=== PATIENT | female | born 1995 | race Caucasian/White ===

== ENCOUNTER 2019-06-04 20:18 | Emergency (ER) | payer MEDICAID ==
[~2019-06-04] VITALS: Ht 160 cm; Wt 58.0 kg
[2019-06-04] MEDS ORDERED: ondansetron/PF 4mg/2ml inj IV ONE (22:35)
[2019-06-04] MEDS ORDERED: normal saline 1000ML IV soln IVB ONE (22:35)
[2019-06-04 23:01] LABS: BASOPHILS % (AUTO) 0.2 % (0-1); EOSINOPHILS # (AUTO) 0.1 X10'3 (0-0.9); EOSINOPHILS % (AUTO) 1.2 % (0-6); HEMATOCRIT 39.7 % (35.0-45.0); HEMOGLOBIN 13.5 g/dl (12.0-16.0); LYMPHOCYTES # (AUTO) 2.2 X10'3 (1.1-4.8); LYMPHOCYTES % (AUTO) 18.2 % (21-51); MEAN CORPUSCULAR HEMOGLOBIN 29.2 PG (27.0-31.0); MEAN CORPUSCULAR VOLUME 85.7 FL (78-98); MEAN PLATELET VOLUME 10.9 FL (7.4-10.4); MONOCYTES # (AUTO) 1.1 X10'3 (0-0.9); MONOCYTES % (AUTO) 8.7 % (2-12); NEUTROPHILS # (AUTO) 8.8 X10'3 (1.8-7.7); NEUTROPHILS % (AUTO) 71.7 % (42-75); PLATELET COUNT 169 X10'3 (140-440); RED BLOOD COUNT 4.63 X10'6 (4.20-5.60); WHITE BLOOD COUNT 12.3 X10'3 (4.5-11.0)
[2019-06-04 23:11] LABS: ALANINE AMINOTRANSFERASE 33 U/L (12-78); ALBUMIN 3.6 G/DL (3.4-5.0); ALBUMIN/GLOBULIN RATIO 0.9 (1.1-1.5); ALKALINE PHOSPHATASE 63 IU/L (46-116); ANION GAP 10 (8-16); ASPARTATE AMINO TRANSFERASE 12 U/L (10-37); BILIRUBIN,TOTAL 0.4 MG/DL (0.1-1.0); BLOOD UREA NITROGEN 10 MG/DL (7-18); BUN/CREATININE RATIO 16.4 (6.6-38.0); CALCIUM 8.9 MG/DL (8.5-10.1); CHLORIDE 102 MMOL/L (99-107); CREATININE 0.61 MG/DL (0.40-0.90); GLUCOSE 81 MG/DL (70-104); POTASSIUM 3.6 MMOL/L (3.5-5.1); SODIUM 136 MMOL/L (135-145); TOTAL CARBON DIOXIDE 24.1 MMOL/L (24-32); TOTAL PROTEIN 7.5 G/DL (6.4-8.2); eGFR > 90 ML/MIN
[2019-06-04 23:36] VITALS: BP 105/52
[2019-06-04 23:42] LABS: LIPASE 99 U/L (73-393)
[2019-06-04 23:50] LABS: BETA HCG,QUANTITATIVE 181053 mIU/ml
[2019-06-05] MEDS ORDERED: ONDA4TAB6 PO (00:32)
[2019-06-05 00:33] LABS: CLARITY,URINE CLEAR (Clear); COLOR,URINE YELLOW (Yellow); GLUCOSE, URINE NEGATIVE (Neg); KETONES,URINE 15 mg/dl (Neg); LEUKOCYTE ESTERASE ,URINE NEGATIVE (Neg); NITRITES, URINE NEGATIVE (Neg); OCCULT BLOOD,URINE NEGATIVE (Neg); PROTEIN,URINE NEGATIVE (Neg); UROBILINOGEN,URINE 0.2 E.U/dL (0.2-1.0)
[2019-06-05 00:34] LABS: UA COLLECTION TYPE CLN CATCH MIDSTREAM
[2019-06-05 00:34] LABS: LARGE PLATELETS FEW; PLATELET ESTIMATE NORMAL
== END 2019-06-05 00:46 | disposition home or self-care (01) ==
LOC: ER 20:21
DX: O21.8 Other vomiting complicating pregnancy (principal); O26.891 Other specified pregnancy related conditions, first trimester; R10.84 Generalized abdominal pain; F12.90 Cannabis use, unspecified, uncomplicated; Z3A.01 Less than 8 weeks gestation of pregnancy; Z79.899 Other long term (current) drug therapy
CPT/HCPCS: 36415; 80053; 81003; 83690; 84702; 85025; 96361; 96374; 99283; J2405; J7030

== ENCOUNTER 2022-07-22 11:57 | Emergency (ER) | payer MEDICAID ==
[~2022-07-22] VITALS: Ht 160 cm; Wt 65.9 kg
[~2022-07-22 11:57] MED LIST: ONDA4TAB6 PO
[2022-07-22 12:25] VITALS: BP 123/86
== END 2022-07-22 14:03 | disposition home or self-care (01) ==
LOC: ER 11:57
DX: G43.809 Other migraine, not intractable, without status migrainosus (principal); F12.10 Cannabis abuse, uncomplicated; Z88.8 Allergy status to other drugs, medicaments and biological substances
CPT/HCPCS: 99281

== ENCOUNTER 2022-11-30 07:15 | Day surgery (SDC) | payer MEDICAID ==
[2022-11-28 14:31] LABS: BASOPHILS % (AUTO) 0.4 % (0-1); EOSINOPHILS # (AUTO) 0.1 X10'3 (0-0.9); EOSINOPHILS % (AUTO) 1.4 % (0-6); LYMPHOCYTES # (AUTO) 2.7 X10'3 (1.1-4.8); LYMPHOCYTES % (AUTO) 27.4 % (21-51); MEAN CORPUSCULAR HEMOGLOBIN 28.4 PG (27.0-31.0); MEAN CORPUSCULAR HGB CONC 33.7 g/dL (33.0-36.5); MEAN CORPUSCULAR VOLUME 84.5 FL (78-98); MONOCYTES # (AUTO) 0.8 X10'3 (0-0.9); MONOCYTES % (AUTO) 8.5 % (2-12); NEUTROPHILS % (AUTO) 62.3 % (42-75); PRE OP HEMATOCRIT 41.2 % (35.0-45.0); PRE OP HEMOGLOBIN 13.9 g/dL (12.0-16.0); PRE OP PLATELET COUNT 231 X10'3 (140-440); RED BLOOD COUNT 4.88 X10'6 (4.20-5.60); RED CELL DISTRIBUTION WIDTH 12.6 % (11.5-14.5)
[2022-11-28 14:37] LABS: ALBUMIN 3.9 G/DL (3.4-5.0); ALKALINE PHOSPHATASE 79 IU/L (46-116); BLOOD UREA NITROGEN 9 MG/DL (7-18); BUN/CREATININE RATIO 12.9 (6.6-38.0); CALCIUM 9.1 MG/DL (8.5-10.1); CHLORIDE 102 MMOL/L (99-107); PRE OP ALT 20 U/L (30-65); PRE OP ANION GAP 8 (8-16); PRE OP AST 18 U/L (10-37); PRE OP BILIRUB, TOTAL 0.4 MG/DL (0.0-1.0); PRE OP GLUCOSE 97 MG/DL (70-104); PRE OP POTASSIUM 3.7 MMOL/L (3.4-5.1); PRE OP SODIUM 138 MMOL/L (135-145); TOTAL PROTEIN 7.8 G/DL (6.4-8.2); eGFR > 90 ML/MIN
[2022-11-28 15:06] LABS: HCG SERUM QL NEGATIVE
[~2022-11-30] VITALS: Ht 160 cm; Wt 69.7 kg
[2022-11-30] VITALS (10 sets, daily range): BP systolic 113–150; BP diastolic 69–87
[~2022-11-30 07:15] MED LIST changes: +ACET-1025 PO; +IBUP-1985 PO; -ONDA4TAB6 PO; +PREN1TAB79 PO; +ceFAZolin inj. 2,000 MG in dextrose 5%-water 100 ML IV ONE; +famotidine 20mg tablet PO ONE; +ringers solution, lacted 1,000 ML IV SCH
[2022-11-30] MEDS ORDERED: BUPIVAcaine 0.25% w/Epi /PF 30ml vial ONE (10:06)
[2022-11-30] MEDS ORDERED: sevoflurane 250ml liquid IH ONE (10:11)
[2022-11-30] MEDS ORDERED: morphine 2 MG/ML inj. syringe IV PRN (10:15)
[2022-11-30] MEDS ORDERED: meperidine/PF 25mg/ml syringe IV PRN ×3 (10:15)
[2022-11-30] MEDS ORDERED: hydrALAZINE 20mg/ml inj. IV PRN (10:15)
[2022-11-30] MEDS ORDERED: ondansetron/PF 4mg/2ml inj IV PRN (10:15)
[2022-11-30] MEDS ORDERED: acetaminophen 1,000mg/100ml IV 100 ML IV PRN (10:15)
[2022-11-30] MEDS ORDERED: ketorolac trometh. 30mg/ml inj. IV ONE (10:15)
[2022-11-30] MEDS ORDERED: proCHLORperazine 10 MG/2 ml inj IV PRN (10:15)
[2022-11-30] MEDS ORDERED: labetalol 20mg/4ml (5mg/ml) syringe IV PRN (10:15)
[2022-11-30] MEDS ORDERED: ringers solution, lacted 1,000 ML IV SCH (10:15)
[2022-11-30] MEDS ORDERED: morphine 4 MG/ML inj SYRINge IV PRN (10:15)
[2022-11-30] MEDS ORDERED: fentaNYL /PF 50mcg/ml 5ml ampule ONE (10:22)
[2022-11-30] MEDS ORDERED: midazolam 1 mg/ML 2ml injection ONE (10:22)
[2022-11-30] MEDS ORDERED: dexamethasone sod phosphate 4mg/ml inj. ONE (10:34)
[2022-11-30] MEDS ORDERED: ondansetron/PF 4mg/2ml inj ONE (10:34)
[2022-11-30] MEDS ORDERED: propofol inj 20 ML IV ONE (10:35)
[2022-11-30] MEDS ORDERED: LIDOcaine 2% (20mg/ml) 5ml vial ONE (10:35)
[2022-11-30] MEDS ORDERED: rocuronium 10mg/ml inj IV ONE (10:35)
[2022-11-30] MEDS ORDERED: neostigmine methylsulfate 1 MG/ML 10ml vial ONE (11:05)
[2022-11-30] MEDS ORDERED: glycopyrrolate 0.2mg/ml inj ONE (11:05)
--- NOTE | 2022-11-30 11:15 | NUR ---
Received from OR via BR[facility] , accompanied by Anesthesiologist DR ARANDA and report given by Anesthesiolgist. PT PRESNTS WITH PIV 20G LEFT HAND, DRESSING CDI, VSS. Addendum: 11/30/22 at 1123 by Mami Nunez RN, RN Amended: Links added.
--- NOTE | 2022-11-30 12:45 | NUR ---
I HAVE REVIEWED D/C INSTRUCTIONS WITH PATIENT AND THEY HAVE VERBALIZED UNDERSTANDING OF INSTRUCTIONS. PATIENT D/C HOME WITH ALL BELONGINGS AND FAMILY GAVE TRANSPORT Addendum: 11/30/22 at 1254 by Mami Nunez RN, RN Amended: Links added.
== END 2022-11-30 12:45 | disposition home or self-care (01) ==
LOC: PAS 07:15
PROVIDERS: ATTEND Obstetrics & Gynecology
DX: Z30.2 Encounter for sterilization (principal); J45.909 Unspecified asthma, uncomplicated; F43.10 Post-traumatic stress disorder, unspecified; F31.9 Bipolar disorder, unspecified; F41.9 Anxiety disorder, unspecified; F12.90 Cannabis use, unspecified, uncomplicated; Z98.890 Other specified postprocedural states; Z79.899 Other long term (current) drug therapy; Z72.89 Other problems related to lifestyle; Z98.818 Other dental procedure status; Z88.8 Allergy status to other drugs, medicaments and biological substances
CPT/HCPCS: 36415; 58670; 80053; 82948; 84703; 85025; 93005; J0690; J1100; J1885; J2250; J2405; J2704; J2710; J3010; J3490; J7060; J7120; S0020; Z7506; Z7508; Z7512; A4618; A7000

== ENCOUNTER 2022-12-04 14:37 | Emergency (ER) | payer MEDICAID ==
[~2022-12-04] VITALS: Ht 160 cm; Wt 70.7 kg
[~2022-12-04 14:37] MED LIST changes: -ceFAZolin inj. 2,000 MG in dextrose 5%-water 100 ML IV ONE; -famotidine 20mg tablet PO ONE; -ringers solution, lacted 1,000 ML IV SCH
[2022-12-04 16:26] LABS: CLARITY,URINE SLIGHTLY CLOUDY (Clear); COLOR,URINE YELLOW (Yellow); GLUCOSE, URINE NEGATIVE (Neg); KETONES,URINE NEGATIVE (Neg); LEUKOCYTE ESTERASE ,URINE NEGATIVE (Neg); NITRITES, URINE NEGATIVE (Neg); OCCULT BLOOD,URINE TRACE-INTACT (Neg); PROTEIN,URINE NEGATIVE (Neg); UROBILINOGEN,URINE 0.2 E.U/dL (0.2-1.0)
[2022-12-04 16:31] LABS: UA COLLECTION TYPE NON-SPECIFIED
[2022-12-04 16:47] LABS: BASOPHILS % (AUTO) 0.3 % (0-1); EOSINOPHILS # (AUTO) 0.2 X10'3 (0-0.9); EOSINOPHILS % (AUTO) 2.7 % (0-6); HEMATOCRIT 42.4 % (35.0-45.0); LYMPHOCYTES # (AUTO) 2.3 X10'3 (1.1-4.8); MEAN CORPUSCULAR HEMOGLOBIN 27.8 PG (27.0-31.0); MEAN CORPUSCULAR HGB CONC 32.9 g/dL (33.0-36.5); MEAN CORPUSCULAR VOLUME 84.5 FL (78-98); MEAN PLATELET VOLUME 10.6 FL (7.4-10.4); MONOCYTES # (AUTO) 0.8 X10'3 (0-0.9); MONOCYTES % (AUTO) 9.6 % (2-12); NEUTROPHILS # (AUTO) 5.3 X10'3 (1.8-7.7); NEUTROPHILS % (AUTO) 61.4 % (42-75); PLATELET COUNT 209 X10'3 (140-440); RED BLOOD COUNT 5.01 X10'6 (4.20-5.60); RED CELL DISTRIBUTION WIDTH 12.9 % (11.5-14.5); WHITE BLOOD COUNT 8.7 X10'3 (4.5-11.0)
[2022-12-04 16:48] LABS: SQUAMOUS EPITHELIAL CELL,UR MANY /LPF (FEW)
[2022-12-04 16:49] LABS: BACTERIA,URINE FEW /HPF (Neg); MUCUS STRANDS NONE SEEN /LPF (Neg)
[2022-12-04 16:50] LABS: RBC,URINE 0-2 /HPF (0-2); WBC,URINE 0-4 /HPF (0-4)
[2022-12-04 16:52] LABS: ALANINE AMINOTRANSFERASE 39 U/L (12-78); ALBUMIN 4.1 G/DL (3.4-5.0); ALBUMIN/GLOBULIN RATIO 1.1 (1.1-1.5); ALKALINE PHOSPHATASE 74 IU/L (46-116); ANION GAP 10 (8-16); ASPARTATE AMINO TRANSFERASE 21 U/L (10-37); BILIRUBIN,TOTAL 0.2 MG/DL (0.1-1.0); BLOOD UREA NITROGEN 11 MG/DL (7-18); BUN/CREATININE RATIO 18.6 (6.6-38.0); CHLORIDE 102 MMOL/L (99-107); CREATININE 0.59 MG/DL (0.40-0.90); GLUCOSE 88 MG/DL (70-104); SODIUM 138 MMOL/L (135-145); TOTAL CARBON DIOXIDE 26.4 MMOL/L (24-32); eGFR > 90 ML/MIN
[2022-12-04 16:53] LABS: TRANSITIONAL EPI CELLS,URINE FEW /HPF
[2022-12-04 19:06] LABS: LARGE PLATELETS FEW; PLATELET ESTIMATE NORMAL
[2022-12-05] MEDS ORDERED: ondansetron/PF 4mg/2ml inj IV ONE (01:00)
[2022-12-05] MEDS ORDERED: HYDROcodone/acetaminophen 10/325mg tab PO ONE (01:00)
[2022-12-05] MEDS ORDERED: normal saline 1000ML IV soln IVB ONE (01:15)
[2022-12-05] MEDS ORDERED: iohexol 350MG/ML 100ml bottle IV ONE (01:36)
[2022-12-05 02:56] VITALS: BP 132/85
== END 2022-12-05 03:11 | disposition home or self-care (01) ==
LOC: ER 14:38
DX: R10.9 Unspecified abdominal pain (principal); G43.909 Migraine, unspecified, not intractable, without status migrainosus; F12.90 Cannabis use, unspecified, uncomplicated; Z98.51 Tubal ligation status; Z88.8 Allergy status to other drugs, medicaments and biological substances
CPT/HCPCS: 36415; 71045; 74177; 80053; 81001; 83605; 84145; 85008; 85025; 87040; 93005; 96374; 99285; J2405; J3490; J7030; Q9967

== ENCOUNTER 2023-05-02 12:00 | Emergency (ER) | payer MEDICAID ==
[~2023-05-02] VITALS: Ht 160 cm; Wt 70.5 kg
--- NOTE | 2023-05-02 12:17 | NUR ---
anny KEMP swabbed pt and took pt vitals, vitals inputted by extension service specialist in charge
[2023-05-02 12:31] LABS: BASOPHILS % (AUTO) 0.3 % (0-1); EOSINOPHILS # (AUTO) 0.2 X10'3 (0-0.9); EOSINOPHILS % (AUTO) 2.5 % (0-6); HEMATOCRIT 40.6 % (35.0-45.0); HEMOGLOBIN 13.6 g/dl (12.0-16.0); LYMPHOCYTES # (AUTO) 2.3 X10'3 (1.1-4.8); LYMPHOCYTES % (AUTO) 32.5 % (21-51); MEAN CORPUSCULAR HGB CONC 33.6 g/dL (33.0-36.5); MEAN CORPUSCULAR VOLUME 83.3 FL (78-98); MEAN PLATELET VOLUME 10.5 FL (7.4-10.4); MONOCYTES # (AUTO) 0.5 X10'3 (0-0.9); MONOCYTES % (AUTO) 7.9 % (2-12); NEUTROPHILS # (AUTO) 3.9 X10'3 (1.8-7.7); NEUTROPHILS % (AUTO) 56.8 % (42-75); PLATELET COUNT 176 X10'3 (140-440); RED BLOOD COUNT 4.87 X10'6 (4.20-5.60); RED CELL DISTRIBUTION WIDTH 13.3 % (11.5-14.5); WHITE BLOOD COUNT 6.9 X10'3 (4.5-11.0)
[2023-05-02 12:49] LABS: ALANINE AMINOTRANSFERASE 22 U/L (12-78); ALBUMIN 4.2 G/DL (3.4-5.0); ALBUMIN/GLOBULIN RATIO 1.1 (1.1-1.5); ALKALINE PHOSPHATASE 75 IU/L (46-116); ANION GAP 6 (8-16); ASPARTATE AMINO TRANSFERASE 25 U/L (10-37); BILIRUBIN,TOTAL 0.4 MG/DL (0.1-1.0); BLOOD UREA NITROGEN 7 MG/DL (7-18); BUN/CREATININE RATIO 10.8 (10.0-20.0); CALCIUM 9.2 MG/DL (8.5-10.1); CHLORIDE 102 MMOL/L (99-107); CREATININE 0.65 MG/DL (0.40-0.90); ETHANOL < 0.010 GM/DL (0.0-0.010); GLUCOSE 100 MG/DL (70-104); SODIUM 136 MMOL/L (135-145); TOTAL CARBON DIOXIDE 27.6 MMOL/L (24-32); TOTAL PROTEIN 7.9 G/DL (6.4-8.2); eGFR > 90 ML/MIN
[2023-05-02] MEDS ORDERED: ALPRAZolam 0.5mg tablet PO ONE (12:50)
[2023-05-02 13:17] LABS: POTASSIUM 4.4 MMOL/L (3.5-5.1)
--- NOTE | 2023-05-02 13:54 | NUR ---
tech inventoried pt belongings and placed them in the locker corresponding tot the room number in the room 27. pt valuables placed in the registration safe.
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
[2023-05-02 14:33] LABS: URINE AMPHETAMINE SCREEN NEGATIVE (Neg); URINE BARBITUATE SCREEN NEGATIVE (Neg); URINE BENZODIAZEPINES SCREEN NEGATIVE (Neg); URINE CANNABINOID SCREEN POSITIVE (Neg); URINE COCAINE SCREEN NEGATIVE (Neg); URINE METHADONE SCREEN NEGATIVE (Neg); URINE OPIATE SCREEN NEGATIVE (Neg); URINE PHENCYCLIDINE SCREEN NEGATIVE (Neg)
[2023-05-02 14:39] LABS: URINE HCG NEGATIVE (NEG)
[2023-05-02 15:15] LABS: CLARITY,URINE CLEAR (Clear); COLOR,URINE STRAW (Yellow); GLUCOSE, URINE NEGATIVE (Neg); KETONES,URINE NEGATIVE (Neg); LEUKOCYTE ESTERASE ,URINE NEGATIVE (Neg); NITRITES, URINE NEGATIVE (Neg); OCCULT BLOOD,URINE NEGATIVE (Neg); PROTEIN,URINE NEGATIVE (Neg); UROBILINOGEN,URINE 0.2 E.U/dL (0.2-1.0)
[2023-05-02 15:21] LABS: UA COLLECTION TYPE CLN CATCH MIDSTREAM
--- NOTE | 2023-05-02 15:35 | NUR ---
anny sent pt packet to [facility]
--- NOTE | 2023-05-02 19:15 | NUR ---
[facility] transport is here. Patient is being transferred to [facility] in [place].
--- NOTE | 2023-05-02 20:50 | NUR ---
Patient is resting quietly, no distress. Awaiting Xfer to [facility] in [place].
[2023-05-02 20:52] VITALS: BP 110/60
== END 2023-05-02 20:56 ==
LOC: ER 12:00
DX: F32.A Depression, unspecified (principal); Z20.822 Contact with and (suspected) exposure to COVID-19; R45.851 Suicidal ideations; G43.909 Migraine, unspecified, not intractable, without status migrainosus; F17.200 Nicotine dependence, unspecified, uncomplicated; F12.90 Cannabis use, unspecified, uncomplicated; Z88.8 Allergy status to other drugs, medicaments and biological substances; Z98.51 Tubal ligation status
CPT/HCPCS: 36415; 80053; 80305; 80320; 81003; 81025; 84443; 85025; 87811; 99285; J7030

== ENCOUNTER 2024-07-31 10:49 | Inpatient (IN) | payer MEDICAID ==
[~2024-07-31] VITALS: Ht 160 cm; Wt 68.4 kg
[2024-07-31 11:27] LABS: BILIRUBIN,URINE NEGATIVE (Neg); CLARITY,URINE SLIGHTLY CLOUDY (Clear); COLOR,URINE YELLOW (Yellow); GLUCOSE, URINE NEGATIVE (Neg); KETONES,URINE NEGATIVE (Neg); LEUKOCYTE ESTERASE ,URINE NEGATIVE (Neg); NITRITES, URINE NEGATIVE (Neg); OCCULT BLOOD,URINE NEGATIVE (Neg); PROTEIN,URINE NEGATIVE (Neg); URINE HCG NEGATIVE (NEG); UROBILINOGEN,URINE 0.2 E.U/dL (0.2-1.0)
[2024-07-31 11:28] LABS: UA COLLECTION TYPE CLN CATCH MIDSTREAM
[2024-07-31 11:32] LABS: BASOPHILS % (AUTO) 0.5 % (0-1); EOSINOPHILS # (AUTO) 0.2 X10'3 (0-0.9); EOSINOPHILS % (AUTO) 2.9 % (0-6); HEMATOCRIT 40.5 % (35.0-45.0); HEMOGLOBIN 13.3 g/dl (12.0-16.0); LYMPHOCYTES # (AUTO) 2.4 X10'3 (1.1-4.8); LYMPHOCYTES % (AUTO) 37.5 % (21-51); MEAN CORPUSCULAR HEMOGLOBIN 28.5 PG (27.0-31.0); MEAN CORPUSCULAR VOLUME 86.4 FL (78-98); MEAN PLATELET VOLUME 9.9 FL (7.4-10.4); MONOCYTES # (AUTO) 0.7 X10'3 (0-0.9); MONOCYTES % (AUTO) 10.5 % (2-12); NEUTROPHILS # (AUTO) 3.1 X10'3 (1.8-7.7); NEUTROPHILS % (AUTO) 48.6 % (42-75); PLATELET COUNT 154 X10'3 (140-440); RED BLOOD COUNT 4.68 X10'6 (4.20-5.60); RED CELL DISTRIBUTION WIDTH 12.5 % (11.5-14.5); WHITE BLOOD COUNT 6.3 X10'3 (4.5-11.0)
[2024-07-31 11:36] LABS: URINE AMPHETAMINE SCREEN NEGATIVE (Neg); URINE BARBITUATE SCREEN NEGATIVE (Neg); URINE BENZODIAZEPINES SCREEN NEGATIVE (Neg); URINE CANNABINOID SCREEN POSITIVE (Neg); URINE COCAINE SCREEN NEGATIVE (Neg); URINE METHADONE SCREEN NEGATIVE (Neg); URINE OPIATE SCREEN NEGATIVE (Neg); URINE PHENCYCLIDINE SCREEN NEGATIVE (Neg)
[2024-07-31 11:38] LABS: BACTERIA,URINE 1+ /HPF (Neg); MUCUS STRANDS NONE SEEN /LPF (Neg); RBC,URINE NONE SEEN /HPF (0-2); SQUAMOUS EPITHELIAL CELL,UR MANY /LPF (FEW); WBC,URINE 0-4 /HPF (0-4)
[2024-07-31] MEDS: diphenhydrAMINE 25mg capsule PO ONE (11:40)
[2024-07-31] MEDS ORDERED: haloperidol lactate 5mg/ml inj IM ONE (11:40)
[2024-07-31 11:53] LABS: ALBUMIN 3.6 G/DL (3.4-5.0); ANION GAP 7 (8-16); BLOOD UREA NITROGEN 11 MG/DL (7-18); BUN/CREATININE RATIO 14.3 (10.0-20.0); CALCIUM 9.1 MG/DL (8.5-10.1); CHLORIDE 107 MMOL/L (99-107); CREATININE 0.77 MG/DL (0.40-0.90); ETHANOL < 10 MG/DL (<10); GLUCOSE 94 MG/DL (70-104); POTASSIUM 4.6 MMOL/L (3.5-5.1); SODIUM 141 MMOL/L (135-145); THYROID STIMULATING HORMONE 2.55 ulU/ml (0.34-4.50); eCRCL 90 ML/MIN; eGFR 89 ML/MIN
[2024-07-31] MEDS: acetaminophen 325mg tablet PO ONE (13:03)
[2024-07-31] MEDS: haloperidol 5mg tablet PO ONE (13:03)
[2024-07-31] MEDS ORDERED: HYDR50CA5 PO (14:40)
[2024-07-31] MEDS ORDERED: LUMA42CA PO (14:40)
[2024-07-31] MEDS ORDERED: GUAN2TAB PO (14:40)
[2024-07-31] MEDS ORDERED: CHLO10TA18 PO (14:40)
[2024-07-31] MEDS ORDERED: FLUO20CA39 PO (14:40)
[2024-07-31] MEDS: chlorproMAZINE 25mg tablet PO SCH (20:23)
[2024-07-31] MEDS: hydrOXYzine 25 MG tablet PO SCH (20:23)
[2024-07-31] MEDS ORDERED: loperamide 2mg capsule PO PRN (21:30)
[2024-07-31] MEDS ORDERED: mag hydrox/Alum hydrox/simeth 30ml oral suspension PO PRN (21:30)
[2024-07-31] MEDS ORDERED: magnesium hydroxide 30ml (MOM) UD suspension PO PRN (21:30)
[2024-07-31 22:11] VITALS: RESP 16; O2SAT 98
[2024-07-31 23:40] VITALS: BP 134/78; PULSE 69; RESP 16; TEMP 97.5; O2SAT 98
[2024-08-01] MEDS: FLUoxetine 10mg capsule PO SCH (07:22)
[2024-08-01] MEDS: guanFACINE 1 mg tablet PO SCH (07:22)
[2024-08-01 07:30] VITALS: BP 146/90; PULSE 88; RESP 20; TEMP 96.6; O2SAT 97
[2024-08-01 07:46] LABS: CHOL/HDL RATIO 3.4 (0.00-4.99); CHOLESTEROL 188 MG/DL (0-200); HDL CHOLESTEROL 56 MG/DL (35-60); LDL CHOLESTEROL 105 MG/DL (50-100); TRIGLYCERIDES 117 MG/DL (20-135)
[2024-08-01 08:00] LABS: HEMOGLOBIN A1C 4.9 % (4.5-6.2)
[2024-08-01] MEDS: acetaminophen 325mg tablet PO PRN (12:59)
[2024-08-01 19:10] VITALS: RESP 14; O2SAT 97
[2024-08-01 20:00] VITALS: BP 95/72; PULSE 76; RESP 14; TEMP 97.6; O2SAT 97
[2024-08-02 07:15] VITALS: BP 136/91; PULSE 77; RESP 16; TEMP 97.8; O2SAT 98
[2024-08-02] MEDS: acetaminophen 325mg tablet PO PRN (07:30)
[2024-08-02 09:30] VITALS: RESP 16; O2SAT 98
[2024-08-02 19:49] VITALS: RESP 16; O2SAT 98
[2024-08-02 19:52] VITALS: BP 113/65; PULSE 87; RESP 16; TEMP 97.8; O2SAT 98
[2024-08-03 07:19] VITALS: RESP 16
[2024-08-03 07:30] VITALS: BP 114/81; PULSE 84; RESP 14; TEMP 97.9; O2SAT 99
[2024-08-03] MEDS: diphenhydrAMINE 25mg capsule PO PRN (18:43)
[2024-08-03 19:00] VITALS: RESP 16; O2SAT 100
[2024-08-03 20:00] VITALS: BP 117/74; PULSE 71; RESP 16; TEMP 97; O2SAT 100
[2024-08-03] MEDS: LUMATEPERONE TOSYLATE 42 MG PO SCH (20:41)
[2024-08-03] MEDS: traZODone 50mg tablet PO PRN (20:41)
[2024-08-04 07:42] VITALS: RESP 14; O2SAT 98
[2024-08-04 07:43] VITALS: BP 123/67; PULSE 74; RESP 14; TEMP 98; O2SAT 98
[2024-08-04] MEDS: aspirin/acetaminophen/caffeine tablet PO PRN (17:56)
[2024-08-04 19:14] VITALS: RESP 12; O2SAT 94
[2024-08-04 20:08] VITALS: BP 119/72; PULSE 91; RESP 12; TEMP 97; O2SAT 94
[2024-08-05 08:00] VITALS: BP 128/83; PULSE 74; RESP 16; TEMP 97.5; O2SAT 98
[2024-08-05] MEDS ORDERED: FLUO-81 PO (09:53)
[2024-08-05] MEDS ORDERED: TRAZ-251 PO (09:53)
== END 2024-08-05 11:57 | disposition home or self-care (01) | DRG 751 ==
LOC: ER 10:49 → ED HOLD 17:30 → ADULT MH 21:02
PROVIDERS: ADMIT Psychiatry & Neurology Psychiatry; ATTEND Psychiatry & Neurology Psychiatry
DX: F33.3 Major depressive disorder, recurrent, severe with psychotic symptoms (principal); R45.851 Suicidal ideations; J45.909 Unspecified asthma, uncomplicated; F43.10 Post-traumatic stress disorder, unspecified; Z20.822 Contact with and (suspected) exposure to COVID-19; F10.20 Alcohol dependence, uncomplicated; F41.9 Anxiety disorder, unspecified; G43.909 Migraine, unspecified, not intractable, without status migrainosus; Z88.8 Allergy status to other drugs, medicaments and biological substances
CPT/HCPCS: 36415; 80048; 80061; 80305; 80320; 81001; 81025; 83036; 84443; 85025; 87811; 99285; Q0161; Q0163; Q0177

== ENCOUNTER 2025-01-03 19:05 | Emergency (ER) | payer MEDICAID ==
[~2025-01-03] VITALS: Ht 160 cm; Wt 75.0 kg
[~2025-01-03 19:05] MED LIST changes: +CHLO10TA18 PO; +FLUO-81 PO; +GUAN2TAB PO; +HYDR50CA5 PO; +LUMA42CA PO; +TRAZ-251 PO
[2025-01-03] MEDS ORDERED: ONDA-243 PO (19:40)
[2025-01-03] MEDS: thiamine 100mg tablet PO ONE (19:51)
[2025-01-03] MEDS: folic acid 1mg tablet PO ONE (19:51)
[2025-01-03] MEDS: normal saline 1000ml 1,000 ML IV ONE (19:51)
[2025-01-03] MEDS: diphenhydrAMINE 50 mg/ml inj IV ONE (20:23)
[2025-01-03] MEDS: ondansetron/PF 4mg/2ml inj IV ONE (20:23)
[2025-01-03] MEDS: acetaminophen 1,000mg/100ml IV 100 ML IV ONE (20:23)
[2025-01-03 21:46] VITALS: BP 124/82; PULSE 70; RESP 18; TEMP 98.6; O2SAT 99
== END 2025-01-03 21:47 | disposition home or self-care (01) ==
LOC: ER 19:06
DX: F10.10 Alcohol abuse, uncomplicated (principal); G43.909 Migraine, unspecified, not intractable, without status migrainosus; F32.A Depression, unspecified; F41.9 Anxiety disorder, unspecified; F12.90 Cannabis use, unspecified, uncomplicated; Z98.51 Tubal ligation status; Y90.9 Presence of alcohol in blood, level not specified
CPT/HCPCS: 93005; 96361; 96374; 96375; 99284; J0131; J1200; J2405; J7030

== ENCOUNTER 2025-01-07 09:26 | Emergency (ER) | payer MEDICAID ==
[~2025-01-07] VITALS: Ht 160 cm; Wt 75.0 kg
[~2025-01-07 09:26] MED LIST changes: +ONDA-243 PO
[2025-01-07 09:44] VITALS: BP 122/86; PULSE 104; RESP 20; O2SAT 97
[2025-01-07] MEDS ORDERED: IBUP-862 PO (11:14)
[2025-01-07] MEDS ORDERED: ibuprofen 200mg tablet PO ONE (11:15)
[2025-01-07 11:29] VITALS: TEMP 98
== END 2025-01-07 11:31 | disposition home or self-care (01) ==
LOC: ER 09:27
DX: S80.01XA Contusion of right knee, initial encounter (principal); G43.909 Migraine, unspecified, not intractable, without status migrainosus; Z88.8 Allergy status to other drugs, medicaments and biological substances; Z79.899 Other long term (current) drug therapy; Z98.51 Tubal ligation status; W01.0XXA Fall on same level from slipping, tripping and stumbling without subsequent striking against object, initial encounter; Y93.89 Activity, other specified; Y92.89 Other specified places as the place of occurrence of the external cause; Y99.8 Other external cause status
CPT/HCPCS: 29505; 73564; 99283

== ENCOUNTER 2025-07-13 14:17 | Outpatient (CLI) | payer MEDICAID ==
[~2025-07-13 14:17] MED LIST changes: -IBUP-1985 PO; +IBUP-862 PO; +IBUP600T52 PO
--- NOTE | 2025-07-13 15:54 | ELECTROCARDIOGRAPH REPORT ---
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 BRIANNA Nazario Measurements Intervals [place] Rate: 90 P: 65 [place]: 139 QRS: 85 QRSD: 71 T: 38 QT: 347 QTc: 425 Interpretive Statements Sinus rhythm Electronically Signed On 07-14-2025 16:53:[address] BRIANNA Nazario Please click the below link to view image of tracing.
== END 2025-07-13 23:59 | disposition home or self-care (01) ==
LOC: RAD 14:17
PROVIDERS: ATTEND Nurse Practitioner Psychiatric/Mental Health
DX: F39 Unspecified mood [affective] disorder (principal); Z79.899 Other long term (current) drug therapy
CPT/HCPCS: 93005

== ENCOUNTER 2025-09-01 12:43 | Inpatient (IN) | payer MEDICAID ==
[~2025-09-01] VITALS: Ht 160 cm; Wt 81.8 kg
[~2025-09-01 12:43] MED LIST changes: -LUMA42CA PO; +LUMA42CA4 PO
[2025-09-01 13:32] LABS: URINE HCG NEGATIVE (NEG)
[2025-09-01 13:34] LABS: LEUKOCYTE ESTERASE ,URINE NEGATIVE (Neg); NITRITES, URINE NEGATIVE (Neg); OCCULT BLOOD,URINE NEGATIVE (Neg)
[2025-09-01 13:41] LABS: UA COLLECTION TYPE CLN CATCH MIDSTREAM
[2025-09-01 13:42] LABS: MEAN PLATELET VOLUME 10.5 FL (7.4-10.4); RED CELL DISTRIBUTION WIDTH 13.5 % (11.5-14.5)
[2025-09-01 13:45] LABS: URINE AMPHETAMINE SCREEN NEGATIVE (Neg); URINE BARBITUATE SCREEN NEGATIVE (Neg); URINE BENZODIAZEPINES SCREEN NEGATIVE (Neg); URINE CANNABINOID SCREEN POSITIVE (Neg); URINE COCAINE SCREEN POSITIVE (Neg); URINE METHADONE SCREEN NEGATIVE (Neg); URINE OPIATE SCREEN NEGATIVE (Neg); URINE PHENCYCLIDINE SCREEN NEGATIVE (Neg)
[2025-09-01 14:02] LABS: CREATININE 0.71 MG/DL (0.40-0.90); TOTAL CARBON DIOXIDE 27.7 MMOL/L (24-32); eCRCL 96 ML/MIN; eGFR > 90 ML/MIN
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
[2025-09-01 14:11] LABS: ETHANOL < 10 MG/DL (<10)
[2025-09-01] MEDS ORDERED: LISD70CA PO (14:40)
[2025-09-01] MEDS ORDERED: [UNRECOGNIZED DRUG - CODE] IM (14:40)
[2025-09-01] MEDS ORDERED: CHLO10TA18 PO (14:40)
[2025-09-01] MEDS ORDERED: PRAZ2CAP2 PO (14:40)
[2025-09-01 21:00] VITALS: BP 123/87; PULSE 91; RESP 18; TEMP 97.9; O2SAT 95
[2025-09-01 21:30] VITALS: RESP 18; O2SAT 95
[2025-09-02] MEDS ORDERED: magnesium hydroxide 30ml (MOM) UD suspension PO PRN (02:20)
[2025-09-02] MEDS ORDERED: mag hydrox/Alum hydrox/simeth 30ml oral suspension PO PRN (02:20)
[2025-09-02] MEDS ORDERED: loperamide 2mg capsule PO PRN (02:20)
[2025-09-02 07:30] VITALS: BP 111/72; PULSE 80; RESP 16; TEMP 98; O2SAT 98
[2025-09-02] MEDS: lisdexamfetamine dimesylate 10mg capsule PO SCH (08:07)
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
[2025-09-02 19:00] VITALS: RESP 16; O2SAT 98
[2025-09-02 20:00] VITALS: BP 127/85; PULSE 91; RESP 16; TEMP 98; O2SAT 98
--- NOTE | 2025-09-02 22:49 | PROGRESS NOTE- Residence ---
Progress Note - Resident Providers to CC Resident Creating Document: MELVIN ANDERSON RES ~ Antibiotic Timeout Antibiotic Ordered?: No Subjective Patient was examined at the bedside, she denies any acute symptoms. Objective Vital Signs Date Time Temp Pulse Resp B/P (MAP) Pulse Ox O2 Delivery O2 Flow Rate FiO2 09/02/25 20:00 98.0 91 16 127/85 (99) 98 Room Air 09/02/25 07:30 0.0 Result Diagram: 09/01/25 1312 09/01/25 1312 General: Awake and Alert, no acute distress. HEENT: Conjunctiva pink, Sclera clear, Mucus Membranes moist. Neck: Supple without masses and tenderness. Resp: Unlabored. Lungs clear to auscultation bilaterally. Heart: Regular Rate and rhythm, normal S1 and S2 without murmur, rub or gallop. Abdomen: Soft and non tender no organomegaly Extremities: No cyanosis,clubbing or edema. Skin: Warm and Dry. Advance Care Planning Advanced Care plannin - 30 Minutes Plan Plan 1)DISSOCIATIVE IDENTITY DISORDER BORDERLINE PERSONALITY DISORDER ADHD OCD PTSD MAJOR DEPRESSIVE DISORDER WITH PSYCHOTIC FEATURES MANIC ANXIETY Psychiatric team will manage this patient -hospitalist team will continue to follow for patient's medical needs Melvin Anderson PGY1-Internal Medicine Resident Date of Service: Sep 02, 2025 Billing Provider: JEFFRY BUTTS MD Common Visit Codes: [id number] INP/OBS CARE(MOD) MELVIN ANDERSON RES Sep 02, 2025 22:49 JEFRFY BUTTS MD Sep 06, 2025 16:32
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
[2025-09-03 07:30] VITALS: RESP 16; O2SAT 97
[2025-09-03 07:41] VITALS: BP 135/88; PULSE 105; RESP 16; TEMP 98; O2SAT 97
[2025-09-03 09:45] LABS: CHOL/HDL RATIO 4.1 (0.00-4.99); LDL CHOLESTEROL 105 MG/DL (50-100)
[2025-09-03 19:00] VITALS: RESP 18; O2SAT 98
[2025-09-03 20:00] VITALS: BP 130/84; PULSE 87; RESP 18; TEMP 97.9; O2SAT 98
[2025-09-04 07:00] VITALS: RESP 16; O2SAT 95
[2025-09-04 08:00] VITALS: BP 102/67; PULSE 82; RESP 16; TEMP 97.7; O2SAT 97
--- NOTE | 2025-09-04 10:18 | PROGRESS NOTE ---
Progress Note Dictate Providers to CC ~ Central Line/PICC still needed: N\\A Antibiotic Ordered?: N/A MRSA Education MRSA Education Provided to pt: N/A Objective Vitals Vital Signs Date Time Temp Pulse Resp B/P (MAP) Pulse Ox O2 Delivery O2 Flow Rate FiO2 09/04/25 08:00 97.7 82 16 102/67 (79) 97 Room Air 09/03/25 19:00 0.0 Lab Results: 09/01/25 1312 09/01/25 1312 Psychiatrist's Progress Note Notes ASSESSMENT The patient was interviewed in observation room. The patient was actively ambulating in hallway. The patient endorses "I am not having any suicidal thoughts now." "I have no thoughts of hurting myself" The voices are the same they do not really ever change until I get the shot. They will be better next week when I get the shot. The visual hallucinations they are about the same. Denies HI. The patient endorses adequate sleep and food intake. The patient is stable no acute distress noted. The patient presents with improved speech patterns, less tangential, more focused. Still having delusions and making bizarre nonsensical statements on occasion. Per staff report patient is medication compliant. Per staff report no abnormal behaviors. Will continue daily assessment and adjusting treatment as needed. Closely monitor behavior and response to medication during hospitalization. Discussed treatment plan with patient. ASE/risks and benefits of chosen treatment. He verbalized understanding and consented to treatment. We will augment with oral paliperidone while injection starts working. Patient hold change to voluntary today. Plans for discharge once parenteral meds are given. Results Of any Diagn. Testing WBC 6.7 RBC 4.62 HEMOGLOBIN 13.7 HEMATOCRIT 40.2 PLATELET 214 SODIUM 136 POTASSIUM 3.4 CHLORIDE 98 ANION GAP 9 BUN 8 CREATININE 0.80 ALT 72 AST 49 CALCIUM 8.4 ALBUMIN 4.0 URINALYSIS NEGATIVE URINE TOX SCREEN NEGATIVE HEMOGLOBIN A1C 5.3 TRIGLYCERIDES 128 CHOLESTEROL 131 LDL 78 HDL 33 TSH 0.46 Appearnace: Neat Speech: Tangential Eye Contact: Normal Motor Activity: Normal Affect: Full Mood: Euthymic Hallucinations: Auditory Other: None Suicidality: None Homicidality: None Delusions: Other (Mixed) Behavior: Cooperative Insight: Poor Judgment: Poor Treatment THORAZINE 50 MG P.O. B.I.D. THORAZINE 25 MG P.O. B.I.D. PRN AGITATION ANXIETY ARISTADA 662MG IM [id number] DUE SEPTEMBER 08, 2025 TRAZODONE 50 MG P.O. Q.H.S. PRN HYDROXYZINE 50 MG P.O. Q.6 PRN ANXIETY/AGITATION BENADRYL 50 MG P.O. Q.6 PRN EPS [id number]-Patient is unable to formulate a plan for safety. We are still titrating medications to an effective dose while maintaining a therapeutic environment to prevent decompensation and readmission. Monitoring by Staff, Milieu, Group, and Individual counseling as needed -- According to the [place] Suicide Assessment the above named patient is on Q15 MINUTE CHECKS. Total time spent 40 minutes on REVIEW OF Clinical notes [X ] RN notes [X] PCT documentation [X] SW notes Labs [ X] Medications [X] Care trends/care activity [X] Vitals [X] DISCUSSION WITH rn dialysis [X] Discharge UNSURE AT THIS TIME. DISCHARGE HOMELESS LIVES IN A HOTEL ONCE STABLE CODING VISIT-PSYCHIATRY Date of Service: Sep 04, 2025 Billing Provider: GAMAL GRADY APRN Psych Common Visit Codes: [id number] INP/OBS CARE(Mod) GAMAL GRADY APRN Sep 04, 2025 10:18
--- NOTE | 2025-09-04 18:18 | PROGRESS NOTE- Residence ---
Progress Note - Resident Providers to CC Resident Creating Document: LENORE COOK RES CC: MARCELA NUÑEZ DO ~ Antibiotic Timeout Antibiotic Ordered?: No Subjective Patient was examined at the bedside, she denies any acute symptoms. Objective Vital Signs Date Time Temp Pulse Resp B/P (MAP) Pulse Ox O2 Delivery O2 Flow Rate FiO2 09/04/25 08:00 97.7 82 16 102/67 (79) 97 Room Air 09/03/25 19:00 0.0 Result Diagram: 09/01/25 1312 09/01/25 1312 General: Awake and Alert, no acute distress. HEENT: Conjunctiva pink, Sclera clear, Mucus Membranes moist. Neck: Supple without masses and tenderness. Resp: Unlabored. Lungs clear to auscultation bilaterally. Heart: Regular Rate and rhythm, normal S1 and S2 without murmur, rub or gallop. Abdomen: Soft and non tender no organomegaly Extremities: No cyanosis,clubbing or edema. Skin: Warm and Dry. Plan Plan DISSOCIATIVE IDENTITY DISORDER BORDERLINE PERSONALITY DISORDER ADHD OCD PTSD MAJOR DEPRESSIVE DISORDER WITH PSYCHOTIC FEATURES MANIC ANXIETY -manage as per psychiatric advice Patient did not have him any medical complaints or symptoms at this point As the hospitalist team we will continue to monitor the patient and intervene if any active symptoms noted. Lenore Cook Internal Medicine resident Date of Service: Sep 04, 2025 Billing Provider: MARCELA NUÑEZ DO Common Visit Codes: [id number] INP/OBS CARE(LOW) LENORE COOK RES Sep 04, 2025 18:18 MARCELA NUÑEZ DO Sep 04, 2025 18:44
[2025-09-04 19:32] VITALS: BP 126/81; PULSE 96; RESP 16; TEMP 98.2; O2SAT 98
[2025-09-04 19:34] VITALS: RESP 16; O2SAT 98
[2025-09-05 07:00] VITALS: RESP 16; O2SAT 97
[2025-09-05 08:00] VITALS: BP 111/63; PULSE 87; RESP 16; TEMP 97.7; O2SAT 97
--- NOTE | 2025-09-05 13:22 | PROGRESS NOTE ---
Progress Note Dictate Providers to CC ~ Central Line/PICC still needed: N\\A Antibiotic Ordered?: N/A MRSA Education MRSA Education Provided to pt: N/A Objective Vitals Vital Signs Date Time Temp Pulse Resp B/P (MAP) Pulse Ox O2 Delivery O2 Flow Rate FiO2 09/05/25 08:00 97.7 87 16 111/63 (79) 97 Room Air 09/03/25 19:00 0.0 Lab Results: 09/01/25 1312 09/01/25 1312 Psychiatrist's Progress Note Date of Service: Sep 05, 2025 Notes ASSESSMENT The patient was interviewed in observation room. The patient was in the rec room. The patient endorses "I am not having any suicidal thoughts now." "I have no thoughts of hurting myself" The voices are the same they do not really ever change until I get the shot. Patient They will be better next week when I get the shot. The visual hallucinations they are about the same. Denies HI. The patient endorses adequate sleep and food intake. The patient is stable no acute distress noted. The patient presents with improved speech patterns, less tangential, more focused. Still having delusions and making bizarre nonsensical statements on occasion. Per staff report patient is medication compliant. Per staff report no abnormal behaviors. Will continue daily assessment and adjusting treatment as needed. Closely monitor behavior and response to medication during hospitalization. Discussed treatment plan with patient. ASE/risks and benefits of chosen treatment. Voluntary status of inpatient started yesterday. Results Of any Diagn. Testing WBC 6.7 RBC 4.62 HEMOGLOBIN 13.7 HEMATOCRIT 40.2 PLATELET 214 SODIUM 136 POTASSIUM 3.4 CHLORIDE 98 ANION GAP 9 BUN 8 CREATININE 0.80 ALT 72 AST 49 CALCIUM 8.4 ALBUMIN 4.0 URINALYSIS NEGATIVE URINE TOX SCREEN NEGATIVE HEMOGLOBIN A1C 5.3 TRIGLYCERIDES 128 CHOLESTEROL 131 LDL 78 HDL 33 TSH 0.46 Appearnace: Neat Speech: Tangential Eye Contact: Normal Motor Activity: Normal Affect: Full Mood: Euthymic Orientation Impairment: None Memory Impairment: None Attention: Normal Hallucinations: Auditory Other: None Suicidality: None Homicidality: None Delusions: None Behavior: Cooperative Insight: Poor Judgment: Poor Treatment THORAZINE 50 MG P.O. B.I.D. THORAZINE 25 MG P.O. B.I.D. PRN AGITATION ANXIETY ARISTADA 662MG IM [id number] DUE SEPTEMBER 08, 2025 TRAZODONE 50 MG P.O. Q.H.S. PRN HYDROXYZINE 50 MG P.O. Q.6 PRN ANXIETY/AGITATION BENADRYL 50 MG P.O. Q.6 PRN EPS [id number]-Patient is unable to formulate a plan for safety. We are still titrating medications to an effective dose while maintaining a therapeutic environment to prevent decompensation and readmission. Monitoring by Staff, Milieu, Group, and Individual counseling as needed -- According to the [place] Suicide Assessment the above named patient is on Q15 MINUTE CHECKS. Total time spent 40 minutes on REVIEW OF Clinical notes [X ] RN notes [X] PCT documentation [X] SW notes Labs [ X] Medications [X] Care trends/care activity [X] Vitals [X] DISCUSSION WITH content administrator [X] Discharge UNSURE AT THIS TIME. DISCHARGE HOMELESS LIVES IN A HOTEL ONCE STABL CODING VISIT-PSYCHIATRY Date of Service: Sep 05, 2025 Billing Provider: GAMAL GRADY APRN Psych Common Visit Codes: [id number] INP/OBS CARE(Mod) GAMAL GRADY APRN Sep 05, 2025 13:22
[2025-09-05 19:45] VITALS: BP 146/89; PULSE 100; RESP 20; TEMP 98.8; O2SAT 98
[2025-09-05 19:52] VITALS: RESP 20; O2SAT 98
[2025-09-06 07:00] VITALS: RESP 15; O2SAT 98
[2025-09-06 08:00] VITALS: BP 125/69; PULSE 93; RESP 15; TEMP 98; O2SAT 98
[2025-09-06] MEDS ORDERED: PRAZ2CAP2 PO (11:03)
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
--- NOTE | 2025-09-06 16:42 | HISTORY AND PHYSICAL-Residence ---
History & Physical Providers to CC Resident Creating Document: MELVIN ANDERSON RES ~ History of Present Illness Primary Medical Doctor: [facility] Reason for Admit\Complaint: Suicidal ideation History of Present Illness This is s a 30 years old female, with no significant past medical history was admitted in the Behavioral Health unit for MDD with psychotic features, borderline personality disorder and PTSD. Patient also suicidal ideation and hence was on 5150 hold. Patient was admitted and managed per Psychiatry team. Also on further interviewing she denied significant past medical history, she also admits to having a healthy lifestyle and denied any further medical complaints. Patient will be followed all through her hospital stay and treatment will be altered based on labs and ongoing symptoms. Allergies: Coded Allergies: bismuth subsalicylate (Verified Allergy, Unknown, PROJECTILE VOMITING, 09/01/25) Home Medications Home Medications Active Prazosin Hcl 2 Mg Capsule 1 Cap PO HS 30 Days Reported Aristada (Aripiprazole Lauroxil) 662 Mg/2.4 Ml Suser.syr 662 Mg IM [id number] Vyvanse (Lisdexamfetamine Dimesylate) 70 Mg Capsule 1 Cap PO DAILY Thorazine* (Chlorpromazine HCl) 10 Mg Tablet 2 Tab PO HS 30 Days Thorazine* (Chlorpromazine HCl) 10 Mg Tablet 2.5 Tab PO BID 1 Days Past Medical History Past Medical History Past psychiatric history: Dissociative identity disorder Borderline personality disorder ADHD PTSD Major depressive disorder Manic anxiety Past medical history: None Past Surgical History Surgical History Comment Tubal ligation Oral surgery Family History Family History: FH: cancer FATHER, Name: Narinder (Suicide Attempt years ago), , Onset:Unknown FH: hypertension MOTHER (HTN,cardiac problems unknown DX.), Onset:Unknown FHx: stroke FATHER, Name: Narinder (Suicide Attempt years ago), , Onset:Unknown Major depression FATHER, Name: Narinder (Suicide Attempt years ago), , Onset:Unknown Paranoid schizophrenia FATHER, Name: Narinder (Suicide Attempt years ago), , Onset:Unknown Past Social History Social History Comment Admits to smoking marijuana daily, occasional alcohol use and occasional tobacco use Alcohol Use: None Drug Use: Marijuana Lives In: Home ROS ROS Reviewed in full, pertinent positive per HPI Exam Vitals: Vital Signs Date Time Temp Pulse Resp B/P (MAP) Pulse Ox O2 Delivery O2 Flow Rate FiO2 09/06/25 08:00 98.0 93 15 125/69 (87) 98 Room Air 09/03/25 19:00 0.0 General: GENERAL: Awake, alert, oriented. No acute distress. Well-developed, hydrated and well-built nourished. HEENT : Normocephalic, atraumatic, pupils equal and reactive to light, extraocular movements intact, no scleral icterus or conjunctival pallor, nasal mucosa is moist, oral mucosa moist, tonsils not enlarged NECK: neck is supple, trachea midline, no lymphadenopathy, no thyromegaly, no JV distention RESPIRATORY: Chest expansion equal bilaterally, breath sounds vesicular, no wheezes, or rhonchi. No use of accessory muscles, no tenderness on palpation. CARDIOVASCULAR: S1 and S2 heard, no murmurs, no rubs, or gallops ABDOMEN: Soft, nontender, nondistended, bowel sounds present and normoactive. No organomegaly, no palpable mass, no rebound or guarding NEUROLOGICAL: Alert, oriented, normal memory, speech is normal Cranial nerves II-XII- intact Motor strength 5/5 Sensation-intact in all extremities Reflexes +2 and symmetrical Coordination is intact EXTREMITIES: No Edema, normal peripheral pulses, no deformities Psychiatric: As per Psychiatry note Advance Care Planning Advanced Care plannin - 30 Minutes Additional Plan Note pertaining to 09/02/2025 Medical details: Hematological panel-normal CMP-normal LDL- mildly elevated -105- recommended conservative management, advised to repeat lipid panel outpatient in 3 months TSH- normal Renal and Chem panel: Normal Patient denies medical complaints Dissociated identity disorder Borderline personality disorder ADHD OCD PTSD Major Depressive disorder with psychotic features Manic anxiety Management per Psychiatry team Hospitalist team will continue to follow the patient Melvin Anderson PGY1-Internal Medicine Resident Date of Service: Sep 02, 2025 Billing Provider: JEFFRY BUTTS MD Common Visit Codes: [id number] INP/OBS CARE (MOD) MELVIN ANDERSON RES Sep 06, 2025 16:42 JEFFRY BUTTS MD Sep 06, 2025 17:09
[2025-11-24] MEDS ORDERED: ARIPIPRAZOLE LAUROXIL IM SCH (08:00)
== END 2025-09-06 12:15 | disposition home or self-care (01) | DRG 750 ==
LOC: ER 12:44 → ADULT MH 17:15 → UNDOADMIN 17:15 → ADULT MH 21:00
PROVIDERS: ADMIT Psychiatry & Neurology Psychiatry; ATTEND Psychiatry & Neurology Psychiatry
DX: F32.3 Major depressive disorder, single episode, severe with psychotic features (principal); R45.851 Suicidal ideations; F41.9 Anxiety disorder, unspecified; F42.9 Obsessive-compulsive disorder, unspecified; F44.81 Dissociative identity disorder; F60.3 Borderline personality disorder; G43.909 Migraine, unspecified, not intractable, without status migrainosus; F90.9 Attention-deficit hyperactivity disorder, unspecified type; F43.10 Post-traumatic stress disorder, unspecified; Z88.8 Allergy status to other drugs, medicaments and biological substances; Z82.49 Family history of ischemic heart disease and other diseases of the circulatory system
CPT/HCPCS: 36415; 80048; 80061; 80305; 80320; 81003; 81025; 83036; 84443; 85025; 87081; 87811; 99285; Q0161; Q0163; Q0177